=== PATIENT | male | born 1995 | race Caucasian/White ===

== ENCOUNTER 2021-05-25 01:25 | Emergency (ER) | payer SELFPAY ==
[2021-05-25] MEDS: Lidocaine 1% 5 ML VIAL INJECT ONE (02:39)
== END 2021-05-25 03:25 | disposition home or self-care (01) ==
LOC: MW.ED 01:25
DX: S01.111A Laceration without foreign body of right eyelid and periocular area, initial encounter (principal); F10.129 Alcohol abuse with intoxication, unspecified; W50.0XXA Accidental hit or strike by another person, initial encounter
CPT/HCPCS: 12011; 70450; 70450-26; 70486; 70486-26; 72125; 72125-26; 99283-25

== ENCOUNTER 2022-02-13 01:44 | Emergency (ER) | payer SELFPAY | END 2022-02-13 02:05 | LOC: MW.ED 01:44 | DX: Z02.89 Encounter for other administrative examinations (principal) | CPT/HCPCS: 99283 ==

== ENCOUNTER 2022-09-12 09:00 | Emergency (ER) | payer OTHER | END 2022-09-12 12:43 | disposition home or self-care (01) | LOC: MW.ED 09:00 | DX: S82.092A Other fracture of left patella, initial encounter for closed fracture (principal); M54.50 Low back pain, unspecified; V27.49XA Other motorcycle driver injured in collision with fixed or stationary object in traffic accident, initial encounter; Y92.410 Unspecified street and highway as the place of occurrence of the external cause | CPT/HCPCS: 72125; 72125-26; 72131; 72131-26; 73562-26-LT; 73562-LT; 99283; 99284 ==